=== PATIENT | female | born 1985 | race Caucasian/White ===

== ENCOUNTER → 2017-07-09 | Outpatient (REF) ==
[2016-04-12 22:49] VITALS: BMI 27.1
[~2017-07-09] MED LIST: ACE3 PO; ACET-1718 PO; CEP500 PO; IBUP800T37 PO; MEDR104D3 SQ; ONDA4TAB97 PO; PREN1TAB44 PO; VITAMINS
[2017-07-09 06:30] LABS: LDL CHOLESTEROL 74 mg/dl
== END ==
DX: Z02.9 Encounter for administrative examinations, unspecified (principal)

== ENCOUNTER → 2018-06-27 | Outpatient (REF) ==
[2016-04-12 22:49] VITALS: BMI 27.1
[~2018-06-27] MED LIST changes: +BUTA1CAP51 PO; +CHOL10005 PO; +CYAN500T38 PO; +KET10 PO; +METO10I IM; +RIZA10TA3 PO; +ZINC50TA43 PO
[2018-06-27 06:40] LABS: LDL CHOLESTEROL 73 mg/dl
== END ==
DX: Z02.9 Encounter for administrative examinations, unspecified (principal)

== ENCOUNTER → 2018-07-01 | Outpatient (CLI) | payer OTHER ==
[2016-04-12 22:49] VITALS: BMI 27.1
[2018-07-01 16:24] LABS: INR 1.03
== END ==
LOC: LAB 15:32
PROVIDERS: ATTEND Plastic Surgery
DX: Z01.812 Encounter for preprocedural laboratory examination (principal)
CPT/HCPCS: 36415; 85610; 85730